=== PATIENT | male | born 1980 | race Caucasian/White ===

== ENCOUNTER 2018-05-29 17:15 | Emergency (ER) | payer OTHER ==
[2018-05-29 17:19] VITALS: BP 126/83
[2018-05-29] MEDS ORDERED: PROPARACAINE 0.5% 15 ML OPHT DROP OP ONE (17:40)
[2018-05-29] MEDS ORDERED: FLUORESCEIN SODIUM 1 MG STRIP OP ONE (17:40)
--- NOTE | 2018-05-29 17:53 | EDPHY ---
H & P Smoking Status: Never smoked Time Seen by Provider: 05/29/18 17:37 HPI/ROS: CHIEF COMPLAINT: Left facial injury HISTORY OF PRESENT ILLNESS: 38-year-old male with history of corrective lens use which he did not bring with him, states that he is wearing protective glasses at work today at a [employer] organization, a spring snapped and impacted his inferior orbital region, Gonzalez self his glasses and impacted his left eyebrow. He is complaining of laceration. Denies underlying osseous pain. Denies abnormal gaze or diplopia. Denies loss of consciousness. Tetanus is up-to-date. Denies ocular irritation or foreign body sensation. Denies visual acuity changes. PRIMARY CARE PROVIDER: Worker's compensation REVIEW OF SYSTEMS: 10 systems reviewed and negative with the exception of the elements mentioned in the history of present illness PAST MEDICAL/SURGICAL HISTORY: Corrective lens use. Tetanus up-to-date. SOCIAL HISTORY: denies alcohol use at time of incident PHYSICAL EXAM 1) GENERAL: Well-developed, well-nourished, alert and oriented. Appears to be in no acute distress. Answering questions appropriately. 2) HEAD: Normocephalic, atraumatic 3) OCULAR EXAM: Visual Acuity: noted from Nurse's notes. This is performed without his corrective lens use. Pupils:equal round and reactive to light EOMI Lids: no edema or swelling, upper and lower lids were everted and no foreign bodies were visualized, no areas of increased fluorescein uptake. Skin: no proptosis, no periorbital erythema or swelling, no vesicles, no pain with extraocular movements. Conjunctivae: not injected, no discharge, negative Ria test. Cornea: exam with fluorescein shows no areas of increased uptake, no corneal abrasion or corneal laceration. Anterior chamber:normal, no hyphema or hypopyon Periorbital bones are nontender. No crepitus. No abnormal gaze. No diplopia with range of motion. No proptosis. Left midline eyebrow 1.5 cm well- demarcated linear laceration. Left inferior orbital region 1.5 cm linear superficial laceration. 4) NECK: No cervical collar is on. Posterior cervical spine is nontender, no stepoff, no effusion. Full range of motion which does not elicit any midline cervical spine pain, no posterior midline tenderness, no step-off. (Zuleyma Avila) Constitutional: Initial Vital Signs Temperature (C) 36.7 C 05/29/18 17:17 Heart Rate 81 05/29/18 17:17 Respiratory Rate 18 05/29/18 17:17 Blood Pressure 126/83 H 05/29/18 17:17 O2 Sat (%) 99 05/29/18 17:17 O2 Delivery Mode Room Air Allergies/Adverse Reactions: No Known Allergies Allergy (Unverified 05/29/18 17:17) Home Medications: Medication Instructions Recorded NK [No Known Home Meds] 05/29/18 MDM/Departure - MDM Procedures: Procedure: Laceration repair with tissue adhesive Verbal consent was obtained from the patient. The 2, 1.5 cm lacerations were scrubbed and explored to its base with a gloved finger. No foreign body seen, no foreign bodies palpated. There were no deep structures involved. The wound was repaired with tissue adhesive. The procedure was performed by myself. Patient has been informed that scarring will occur, although efforts have been made to minimize this. (Zuleyma Avila) Medications Given: Discontinued Medications Fluorescein Sodium (Bioglo) 1 mg OP EDNOW ONE Stop: 05/29/18 17:41 Last Admin: 05/29/18 17:43 Dose: Not Given Proparacaine HCl (Alcaine 0.5%) 1 drops OP EDNOW ONE Stop: 05/29/18 17:41 Last Admin: 05/29/18 17:43 Dose: Not Given ED Course/Re-evaluation: Patient has no evidence of corneal abrasion or laceration. No facial bone pain. Symmetrical faces. I do not think that imaging indicated at this time. Plan will be wound closure from the ER follow up with work comp provider. My Usual and customary wound precautions instructions provided. I saw this patient independently based on established practice protocols. Care of patient under supervision of secondary supervising physician Dr Beth . (Zuleyma Avila ) I did not see this patient while he was in the emergency department. However his care was discussed with the PA while the patient was in the department. I agree with treatment plan and management (Jony Beth) - Depart Disposition: Home, Routine, Self-Care Clinical Impression: Facial laceration Qualifiers: Encounter type: initial encounter Qualified Code(s): S01.81XA - Laceration without foreign body of other part of head, initial encounter Instructions: Laceration (ED) Referrals: Follow-up, with your work comp provider in 2-3 days [Other] - As per Instructions
[2018-05-29] MEDS ORDERED: SKIN ADHESIVE (DERMABOND) 1 EACH TP ONE (18:03)
== END 2018-05-29 18:23 | disposition home or self-care (01) ==
PROC: 0HQ1XZZ Repair Face Skin, External Approach (ICD-10-PCS; principal; 2018-05-29)
DX: S01.112A Laceration without foreign body of left eyelid and periocular area, initial encounter (principal); W20.8XXA Other cause of strike by thrown, projected or falling object, initial encounter; Y99.0 Civilian activity done for income or pay; Y92.59 Other trade areas as the place of occurrence of the external cause